=== PATIENT | female | born 1985 | race Hispanic/Latino ===

== ENCOUNTER 2022-04-15 22:17 | Emergency (ER) | payer OTHER | END 2022-04-16 00:38 | disposition home or self-care (01) | LOC: ERS 22:17 | DX: T63.441A Toxic effect of venom of bees, accidental (unintentional), initial encounter (principal); I10 Essential (primary) hypertension; F17.200 Nicotine dependence, unspecified, uncomplicated; Z79.899 Other long term (current) drug therapy | CPT/HCPCS: 71045; 93005 ==